=== PATIENT | male | born 1950 | race Caucasian/White ===

== ENCOUNTER 2021-07-23 06:54 | Day surgery (SDC) | payer MEDICARE, OTHER ==
[2021-07-23] MEDS ORDERED: fentaNYL 100 MCG/2 ML SDV ONE (07:23)
[2021-07-23] MEDS ORDERED: Midazolam 1 MG/ML 2 ML SDV ONE (07:23)
[2021-07-23] MEDS ORDERED: Propofol 200 MG/20 ML SDV ONE (07:23)
[2021-07-23] MEDS ORDERED: Sodium Chloride 0.9% 1,000 ML IV SCH (07:30)
[2021-07-23 07:55] LABS: CORONAVIRUS COVID-19 NAA NEGATIVE (NEGATIVE)
== END 2021-07-23 10:30 | disposition home or self-care (01) ==
LOC: JP.SDS 06:54
PROVIDERS: ATTEND Family Medicine
DX: Z12.11 Encounter for screening for malignant neoplasm of colon (principal); I10 Essential (primary) hypertension; E78.5 Hyperlipidemia, unspecified; G47.33 Obstructive sleep apnea (adult) (pediatric); Z86.010 Personal history of colon polyps; Z01.812 Encounter for preprocedural laboratory examination; Z20.822 Contact with and (suspected) exposure to COVID-19
CPT/HCPCS: 0241U; G0105; J2250; J2704; J3010; J7030

== ENCOUNTER 2022-05-01 03:35 | Emergency (ER) | payer MEDICARE, OTHER ==
[2022-05-01 04:19] LABS: ESTIMATED GFR 45 mL/min (>60); TROPONIN I HIGH SENSITIVITY 8.3 pg/mL (<=60.3)
[2022-05-01] MEDS ORDERED: Alum Hydrox/Mag Hydrox/Simeth 15 ML, Lidocaine 2% 15 ML PO ONE ×2 (06:11)
== END 2022-05-01 07:40 | disposition home or self-care (01) ==
LOC: JP.ED 03:35
DX: K21.00 Gastro-esophageal reflux disease with esophagitis, without bleeding (principal); I44.4 Left anterior fascicular block; E78.00 Pure hypercholesterolemia, unspecified; I10 Essential (primary) hypertension; E11.9 Type 2 diabetes mellitus without complications; Z79.82 Long term (current) use of aspirin; Z79.899 Other long term (current) drug therapy; Z79.4 Long term (current) use of insulin
CPT/HCPCS: 36415; 80053; 83690; 84484; 85025; 85610; 85730; 86140; 93005; 99285; A9270